=== PATIENT | male | born 1980 | race American Indian/Alaskan Native ===

== ENCOUNTER 2018-11-08 14:19 | Emergency (ER) | payer OTHER ==
[2018-11-08 14:26] VITALS: BP 136/90
--- NOTE | 2018-11-08 15:31 | Cat Scan Report ---
PROCEDURE: CT FACIAL BONES WO CON HISTORY: Trauma, pain FINDINGS: Unenhanced CT of the facial bones was performed and data was reformatted into the sagittal and coronal planes. Nondisplaced fracture of the anterior mandible, extending from the inferior mandible, approximately 1 cm to the right of midline, to the superior mandible approximately 0.4 cm the left of midline, best seen coronal images 24-26. There is an additional nondisplaced fracture of the left anterior mandibl e which is best seen sagittal image 23, coronal image 33 involving the left mandibular body. The mandibular condyles are intact bilaterally. The temporomandibular joints are normally located. Both globes appear intact. There is no retrobulbar hemorrhage. The paranasal sinuses appear clear. The nasal bones, bony orbits, zygomatic arches, and maxilla appear intact. IMPRESSION: Nondisplaced fracture of anterior mandible Nondisplaced fracture of left mandibular body This document is electronically signed by Lamont Carrillo MD., November 08 2018 03:29:02 PM ET
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
== END 2018-11-08 17:54 | disposition home or self-care (01) ==
LOC: ED 14:19
DX: S02.609A Fracture of mandible, unspecified, initial encounter for closed fracture (principal); F12.10 Cannabis abuse, uncomplicated; W22.8XXA Striking against or struck by other objects, initial encounter; Y93.89 Activity, other specified; Y92.89 Other specified places as the place of occurrence of the external cause; Y99.8 Other external cause status
CPT/HCPCS: 70486; 99283